=== PATIENT | female | born 1960 | race Caucasian/White ===

== ENCOUNTER → 2017-07-12 08:37 | Outpatient (CLI) | payer BC, SELFPAY ==
--- NOTE | 2017-07-12 08:40 | HPBI_ITS ---
MAMMOGRAPHY - BILATERAL SCREENING REASON FOR EXAM: Female, 57 years old. Routine annual screening examination. PERTINENT HISTORY: Aunt with breast cancer. TECHNIQUE: Digital bilateral breast lluvia (3D mammographic acquisition) in the CC and MLO projections. 2-D mediolateral oblique (MLO) and craniocaudad (CC) views of both breasts were obtained. CAD: Full Field Digital Mammography with Computer Added Detection was performed. COMPARISON: Comparison is made with prior examination dated July 11, 2016 and June 20, 2014. FINDINGS: Breast Composition: There are scattered areas of fibroglandular density. There are no dominant masses or suspicious calcifications. Stable asymmetry of breast tissue were more breast tissue is seen in the upper outer quadrant of the left breast as compared to the right side. This is unchanged. No other significant abnormalities are identified. There has been no significant change since the prior study. HPBI/SCREENING MAMM (CAD), BILAT IMPRESSION: Stable bilateral screening mammogram. Yearly follow-up mammogram recommended. (A) ASSESSMENT CATEGORY: BIRADS Category 2: Benign. A letter regarding these results will be sent to the patient by the facility within 30 days. Approximately 10% of breast cancers are not detected by mammography. A normal mammogram should not delay biopsy of a clinically suspicious abnormality. [id number] Electronically Signed: Rene Shah MD at 8:48 EST Tel [phone], Service support ,
== END ==
PROVIDERS: Family Provider Family Medicine; PCP Family Medicine; Visit Provider Obstetrics & Gynecology Gynecology
DX: Z12.31 Encounter for screening mammogram for malignant neoplasm of breast (principal)
CPT/HCPCS: 77063; 77067

== ENCOUNTER → 2017-09-22 08:12 | Outpatient (CLI) | payer BC, SELFPAY ==
[2017-09-22 09:21] LABS: Glucose GTT- Fasting 93 mg/dL (74-106)
[2017-09-22 10:52] LABS: Glucose GTT-30 minutes 175 mg/dL (110-170)
[2017-09-22 11:49] LABS: Glucose GTT- 1 Hour 205 mg/dL (120-170)
[2017-09-22 13:16] LABS: Glucose GTT- 2 Hour 138 mg/dL (70-120)
== END ==
PROVIDERS: Family Provider Family Medicine; PCP Family Medicine; Visit Provider Family Medicine
DX: R63.1 Polydipsia (principal)
CPT/HCPCS: 36415; 82951; 82952

== ENCOUNTER 2017-10-05 16:26 | Outpatient (RCR) | payer BC, SELFPAY | END 2017-11-02 23:59 | LOC: DC 16:26 | PROVIDERS: Family Provider Family Medicine; PCP Family Medicine; Visit Provider Family Medicine | DX: E11.9 Type 2 diabetes mellitus without complications (principal); Z71.3 Dietary counseling and surveillance | CPT/HCPCS: G0108 ==

== ENCOUNTER 2017-11-27 13:00 | Outpatient (RCR) | payer BC, SELFPAY | END 2017-12-02 23:59 | LOC: DC 13:00 | PROVIDERS: Family Provider Family Medicine; PCP Family Medicine; Visit Provider Family Medicine | DX: E11.9 Type 2 diabetes mellitus without complications (principal); Z71.3 Dietary counseling and surveillance | CPT/HCPCS: 97802 ==

== ENCOUNTER → 2018-01-05 10:34 | Outpatient (CLI) | payer BC, SELFPAY ==
[2018-01-05 11:34] LABS: Ferritin 79 ng/mL (8-252); Iron 125 ug/dL (50-170)
[2018-01-06 13:48] LABS: Transferrin 235 mg/dL (200-370)
== END ==
PROVIDERS: Family Provider Family Medicine; PCP Family Medicine; Visit Provider Family Medicine
DX: D64.9 Anemia, unspecified (principal); R53.83 Other fatigue
CPT/HCPCS: 36415; 82728; 83540; 84466

== ENCOUNTER 2018-02-23 09:29 | Outpatient (RCR) | payer BC, SELFPAY | END 2018-03-04 23:59 | LOC: DC 09:29 | PROVIDERS: Family Provider Family Medicine; PCP Family Medicine; Visit Provider Family Medicine | DX: E11.9 Type 2 diabetes mellitus without complications (principal); Z71.3 Dietary counseling and surveillance ==

== ENCOUNTER → 2018-03-05 07:46 | Outpatient (CLI) | payer BC, SELFPAY ==
--- NOTE | 2018-03-05 08:02 | US_ITS ---
STUDY: ABDOMINAL ULTRASOUND - RIGHT UPPER QUADRANT REASON FOR VISIT: Female, 58 years old. Elevated enzymes. TECHNIQUE: Ultrasound evaluation of the right upper quadrant was performed with real-time and static henry-scale imaging. TECHNICAL QUALITY: Adequate. COMPARISON: None. FINDINGS: Liver: The liver measures 14.1 cm. There is normal echogenicity of the liver. The bile ducts are within normal limits. There is hepatic color flow. The direction of portal flow is hepatopetal. There is no demonstrated mass lesion. Gallbladder: The patient is status post cholecystectomy. Common Bile Duct (C.B.D.): The common bile duct measures 6.8 mm. Pancreas: Normal size of the head, body and tail of the pancreas. There is normal echogenicity of the pancreas. There is no demonstrated pancreatic mass or cyst. Right Kidney: Normal size of the right kidney. The right kidney measures 9.0 cm in length. Normal renal cortex.There is no demonstrated renal mass or cyst. There is no right hydronephrosis. US/Liver IMPRESSION: Within normal limits right upper quadrant ultrasound examination. Electronically Signed: Carol Ann Mercado MD at 20:52 EDT Tel , Service support ,
[2018-03-05 08:30] LABS: Erythrocyte Sedimentation Rate 24 mm/hr (0-30)
[2018-03-05 08:49] LABS: AST(SGOT) 47 U/L (15-37); Alanine Aminotransfer ALT/SGPT 74 U/L (13-56); Albumin, Serum 3.5 g/dL (3.2-5.0); Alkaline Phosphatase 119 U/L (45-117); Bilirubin, Direct 0.13 mg/dL (0.00-0.30); GGTP 140 U/L (5-55); Globulin 3.7 g/dL (2.2-4.2); Iron 82 ug/dL (50-170); Iron Binding Capacity,Total 300 ug/dL (250-450); PERCENT IRON SATURATION 27.3 % (15.0-55.0); Protein, Total 7.2 g/dL (6.4-8.2)
== END ==
PROVIDERS: Family Provider Family Medicine; PCP Family Medicine; Referring Provider Internal Medicine Gastroenterology; Visit Provider Internal Medicine Gastroenterology
DX: K75.9 Inflammatory liver disease, unspecified (principal); R94.5 Abnormal results of liver function studies
CPT/HCPCS: 36415; 76705; 80076; 82977; 83540; 83550; 85652

== ENCOUNTER 2018-03-06 09:03 | Outpatient (RCR) | payer BC, SELFPAY | END 2018-04-04 23:59 | LOC: DC 09:03 | PROVIDERS: Family Provider Family Medicine; PCP Family Medicine; Referring Provider Family Medicine; Visit Provider Family Medicine | DX: E11.9 Type 2 diabetes mellitus without complications (principal); Z71.3 Dietary counseling and surveillance ==

== ENCOUNTER → 2018-03-20 13:27 | Outpatient (CLI) | payer BC, SELFPAY ==
[2018-03-22 10:32] LABS: ANTINUCLEAR ANTIBODIES DIRECT Negative (Negative); Anti-Mitochondrial AB <20.0 Units (0.0-20.0)
[2018-03-23 16:21] LABS: Anti-Smooth Muscle ABS 5 Units (0-19)
== END ==
PROVIDERS: Family Provider Family Medicine; PCP Family Medicine; Referring Provider Internal Medicine Gastroenterology; Visit Provider Internal Medicine Gastroenterology
DX: K75.9 Inflammatory liver disease, unspecified (principal); K76.0 Fatty (change of) liver, not elsewhere classified
CPT/HCPCS: 36415; 83516; 86038

== ENCOUNTER → 2018-07-07 08:06 | Outpatient (CLI) | payer BC, SELFPAY ==
[2018-07-07 09:28] LABS: Microalbumin,Random Urine < 5.0 mg/L (NO RANGE EST.)
[2018-07-07 09:44] LABS: Hemoglobin A1c 5.5 % (4.2-6.3)
[2018-07-07 09:46] LABS: ALB/GLOB Ratio 0.9 RATIO (0.9-2.4); AST(SGOT) 18 U/L (15-37); Alanine Aminotransfer ALT/SGPT 38 U/L (13-56); Albumin, Serum 3.5 g/dL (3.2-5.0); Alkaline Phosphatase 113 U/L (45-117); Anion Gap 10 (5-15); BUN 16 mg/dL (7-18); BUN/Creat Ratio 17.8 RATIO (10-20); Chloride 105 mmol/L (98-107); Cholesterol 204 mg/dL (200); EST Glomerular Filtration Rate 68 mL/min (>60); Est Glom Filt Rate - Afr Amer 83 mL/min (>60); Globulin 3.8 g/dL (2.2-4.2); Glucose 87 mg/dL (74-106); High Density Lipoprotein 75 mg/dL; Potassium 4.2 mmol/L (3.5-5.1); Protein, Total 7.3 g/dL (6.4-8.2); Sodium Level 141 mmol/L (136-145); Triglycerides 81 mg/dL; Very Low Density Lipoprotein 16 mg/dL (5-40)
== END ==
PROVIDERS: Family Provider Family Medicine; PCP Family Medicine; Referring Provider Family Medicine; Visit Provider Family Medicine
DX: E11.9 Type 2 diabetes mellitus without complications (principal)
CPT/HCPCS: 36415; 80053; 80061; 82043; 82570; 83036

== ENCOUNTER → 2018-07-13 10:25 | Outpatient (CLI) | payer BC, SELFPAY ==
--- NOTE | 2018-07-13 10:29 | BI_ITS ---
MAMMOGRAPHY - BILATERAL SCREENING REASON FOR EXAM: Female, 58 years old. Routine annual screening examination. PERTINENT HISTORY: Non-contributory. TECHNIQUE: Digital bilateral breast lluvia (3D mammographic acquisition) in the CC and MLO projections. 2-D mediolateral oblique (MLO) and craniocaudad (CC) views of both breasts were obtained. CAD: Full Field Digital Mammography with Computer Added Detection was performed. COMPARISON: Comparison is made with prior examination dated July 12, 2017 and July 11, 2016. FINDINGS: Breast Composition: There are scattered areas of fibroglandular density. There are no dominant masses or suspicious calcifications. Stable asymmetry of breast tissue with more breast tissue is seen in the upper outer quadrant of the left breast as compared to the right side. This is unchanged. No other significant abnormalities are identified. There has been no significant change since the prior study. BI/SCREENING MAMM (CAD), BILAT IMPRESSION: Stable bilateral screening mammogram. Yearly follow-up mammogram recommended. (A) ASSESSMENT CATEGORY: BIRADS Category 2: Benign. A letter regarding these results will be sent to the patient by the facility within 30 days. Approximately 10% of breast cancers are not detected by mammography. A normal mammogram should not delay biopsy of a clinically suspicious abnormality. [id number] Electronically Signed: Rene Shah MD at 12:41 EST , Service support ,
== END ==
PROVIDERS: Family Provider Family Medicine; PCP Family Medicine; Referring Provider Obstetrics & Gynecology Gynecology; Visit Provider Obstetrics & Gynecology Gynecology
DX: Z12.31 Encounter for screening mammogram for malignant neoplasm of breast (principal)
CPT/HCPCS: 77063; 77067

== ENCOUNTER → 2018-09-26 09:38 | Outpatient (CLI) | payer BC, SELFPAY ==
--- NOTE | 2018-09-26 13:15 | NEURO_ITS ---
NCS and/or EMG Patient Report Ordering Doctor: Shanna Perez DATE OF SERVICE: 09/26/18 Belkys Galloway presents for elective diagnostic testing of the upper limbs. She has numbness and tingling in both hands. Electrodiagnostic findings: Median motor nerve demonstrates prolonged distal latency bilaterally with normal amplitude and conduction velocity. Normal right ulnar motor response bilaterally. Normal median and ulnar F waves. Prolonged median sensory latency at the wrist is noted bilaterally, with decreased cond uction velocities. Needle EMG testing demonstrated 1+ fibrillations and left first dorsal interosseous. All other muscles tested showed no evidence of denervation. Electrodiagnostic impression: This is an abnormal study in the upper limbs. 1. Electrodiagnostic findings demonstrate bilateral median mononeuropathy. This is consistent with a moderate bilateral carpal tunnel syndrome. If there are any further questions, please do not hesitate to contact me.
== END ==
PROVIDERS: Family Provider Family Medicine; PCP Family Medicine; Referring Provider Family Medicine; Visit Provider Family Medicine
DX: G56.00 Carpal tunnel syndrome, unspecified upper limb (principal)
CPT/HCPCS: 95886; 95913

== ENCOUNTER → 2018-11-20 | Outpatient (CLI) | payer BC, SELFPAY ==
--- NOTE | 2018-11-20 09:34 | RAD_ITS ---
STUDY: X-RAY - RIGHT HAND REASON FOR EXAM: Pain. TECHNIQUE: 3 view(s) of the hand. COMPARISON: None. FINDINGS: There is osteopenia. Normal radiocarpal articulation. Normal distal radioulnar joint. Normal visualized carpal bones. Normal carpal articulations Normal carpometacarpal articulation of the thumb. Normal second through fifth carpometacarpal joints. Normal metacarpi. Normal metacarpophalangeal joint of the thumb. Normal interphalangeal joint of the thumb. Normal proximal and distal phalanges of the thumb. Normal metacarpophalangeal joints of the second through fifth fingers. Normal proximal and distal interphalangeal joints of the second through fifth fingers. Normal phalanges of the second through fifth fingers. The soft tissue structures are unremarkable. RAD/Hand Min 3 Views IMPRESSION: Osteopenia. Otherwise, unremarkable x-ray examination of the right hand. Electronically Signed: Jamel Martin MD at 14:34 EDT Tel , Service support ,
--- NOTE | 2018-11-20 09:34 | RAD_ITS ---
STUDY: X-RAY - LEFT HAND REASON FOR EXAM: Pain. TECHNIQUE: 3 view(s) of the hand. COMPARISON: None. FINDINGS: There is osteopenia. Normal radiocarpal articulation. Normal distal radioulnar joint. Normal visualized carpal bones. Normal carpal articulations Normal carpometacarpal articulation of the thumb. Normal second through fifth carpometacarpal joints. Normal metacarpi. Normal metacarpophalangeal joint of the thumb. Normal interphalangeal joint of the thumb. Normal proximal and distal phalanges of the thumb. Normal metacarpophalangeal joints of the second through fifth fingers. Normal proximal and distal interphalangeal joints of the second through fifth fingers. Normal phalanges of the second through fifth fingers. The soft tissue structures are unremarkable. RAD/Hand Min 3 Views IMPRESSION: Osteopenia. Otherwise, unremarkable x-ray examination of the left hand. Electronically Signed: Jamel Martin MD at 14:35 EDT Tel , Service support ,
== END | disposition home or self-care (01) ==
LOC: HPRAD 09:34
PROVIDERS: Family Provider Family Medicine; PCP Family Medicine; Referring Provider Orthopaedic Surgery; Visit Provider Orthopaedic Surgery
DX: G56.03 Carpal tunnel syndrome, bilateral upper limbs (principal)
CPT/HCPCS: 73130

== ENCOUNTER 2018-11-28 13:46 | Emergency (ER) | payer BC, SELFPAY ==
[2018-11-28 13:47] VITALS: BP 104/69; PULSE 84; RESP 16; TEMP 36.6; O2SAT 100; BMI 30.4
--- NOTE | 2018-11-28 14:07 | EKG12_ITS ---
Test Reason : PALPS Blood Pressure : / mmHG Vent. Rate : 080 BPM Atrial Rate : 080 BPM P-R Int : 130 ms QRS Dur : 078 ms QT Int : 370 ms P-R-T Axes : 047 034 045 degrees QTc Int : 426 ms Normal sinus rhythm Normal ECG Confirmed by JUAN LUIS MOISE, SHU ([id number]), editorial clerk MERY BLACKWELL ([id number]) on 11/30/2018 10:53:12 AM Referred By: Confirmed By:MAXI MCKNIGHT MD
--- NOTE | 2018-11-28 14:10 | RAD_ITS ---
STUDY: X-RAY CHEST REASON FOR EXAM: Female, 58 years old. TECHNIQUE: 1 view COMPARISON: None. FINDINGS: The lungs are clear and expanded. There is no demonstrated pleural abnormality. Normal size heart. Normal mediastinum and ebony. Normal visualized pulmonary arteries. Normal visualized aortic arch and descending thoracic aorta. Normal visualized thoracic spine. Normal visualized ribs, clavicles, and shoulders. There is no demonstrated abnormality of the visualized soft tissue structures of the upper abdomen. RAD/Chest 1 View (Portable) IMPRESSION: Normal x-ray examination of the chest. Electronically Signed: Jasson Mcfarland, at 14:24 EDT Tel , Service support ,
[2018-11-28 14:19] VITALS: PULSE 78; RESP 14; O2SAT 100
[2018-11-28] MEDS: Aspirin 81 MG TAB.CHEW 324 MG PO (14:21)
--- NOTE | 2018-11-28 14:36 | ED.VISSUMM ---
- ER Visit Summary Date of Service: 11/28/18 Chief Complaint: Palpitation History of Present Illness: The patient is a 58 F who presents with palpitations. He has had palpitations intermittently for the past week. She describes them as a fluttering in her chest. Is worse when she ambulates and moves. She has felt diaphoretic at times as well. No shortness breath, nausea or vomiting. She denies any chest pain but she told the triage nurse that she was having a burning sensation in her chest. At times she does feel dizzy. She has no history of this in the past. She is never had a stress test. She does have a history of anxiety. Physical Examination: Vital signs reviewed. HEENT exam unremarkable. Heart is regular rate and rhythm without murmurs. Lungs are clear to auscultation. Abdomen is soft and nontender. Extremities reveal no edema. Peripheral pulses are equal. Skin exam normal. Neurologic exam normal. Test Results: EKG is normal sinus rhythm with a rate of 80. No ST changes. Labs are unremarkable. Emergency Department Course and Treatment: The patient's rhythm was sinus throughout her stay in the emergency department. There is no ectopy on her heart monitor. I am unclear the etiology of her palpitations. Patient will be discharged to follow-up with her PCP. She may benefit from a Holter monitor if her symptoms persist. Treatment Plan: [] Disposition: Discharge Impression: Palpitations This note was generated with [employer] dictation software. It may contain incorrect words, spelling, and punctuation that were not noted in review of the chart prior to signing ED Disposition - Plan for ED Patient: Referrals: Shanna Perez DO [Primary Care Provider] -
[2018-11-28 15:58] LABS: Absolute Lymphocyte Count 1.92 X10^3/ul (0.83-4.51); Absolute Neutrophil Count 5.2 X10^3/uL (2.0-7.7); Basophil# 0.03 X10^3/uL; Basophil% 0.4 % (0-1); Eosinophil# 0.13 X10^3/uL; Eosinophils% 1.6 % (0-5); Hematocrit 44.4 % (37-47); Hemoglobin 15.3 g/dl (12.0-15.0); Lymphocyte # 1.92 X10^3/ul (4.0); Lymphocyte % 24.4 % (19-41); Mean Corp Hgb Conc 34.5 g/gl (32-36); Mean Corpuscular Hgb 31.7 pg (27.0-32.0); Mean Corpuscular Volume 91.9 fL (81-99); Mean Platelet Vol. 10.2 fl (6.2-12.0); Monocyte# 0.59 X10^3/uL; Monocyte% 7.5 % (0-10); Neutrophil # 5.18 X10^3/uL (2.7-7.7); Neutrophil % 65.7 % (47-70); Platelet Count 270 K/mm3 (150-450); RBC Distribution Width CV 12.6 % (11.6-14.6); RBC Distribution Width SD 41.7 fl (35.1-43.9); Red Blood Count 4.83 M/mm3 (4.2-5.4); White Blood Count 7.9 K/mm3 (4.4-11.0)
[2018-11-28 15:59] VITALS: BP 124/78; PULSE 81; RESP 17
[2018-11-28 15:59] LABS: POSITIVE COUNT NO; POSITIVE DIFFERENTIAL NO; POSITIVE MORPHOLOGY NO
[2018-11-28 16:16] LABS: Anion Gap 6 (5-15); BUN 20 mg/dL (7-18); BUN/Creat Ratio 20.8 RATIO (10-20); Calcium,Total 9.6 mg/dL (8.5-10.1); Chloride 109 mmol/L (98-107); Creatinine, Serum 0.96 mg/dL (0.55-1.02); EST Glomerular Filtration Rate 63 mL/min (>60); Est Glom Filt Rate - Afr Amer 76 mL/min (>60); Glucose 82 mg/dL (74-106); Sodium Level 138 mmol/L (136-145)
--- NOTE | 2018-11-28 16:29 | ED.DEP ---
ED Disposition - Plan for ED Patient: Disposition: Home or Assisted Living Instructions: Palpitations Referrals: Shanna Perez DO [Primary Care Provider] -
[2018-11-28 16:43] VITALS: PULSE 77; PULSE 78; RESP 18; O2SAT 98
== END 2018-11-28 16:52 | disposition home or self-care (01) ==
PROVIDERS: Emergency Provider Emergency Medicine; Family Provider Family Medicine; PCP Family Medicine
DX: R00.2 Palpitations (principal)
CPT/HCPCS: 36415; 71045; 80048; 84484; 85025; 93005; 99284; A4216

== ENCOUNTER 2018-11-30 12:04 | Day surgery (SDC) | payer BC, SELFPAY ==
[2018-11-30] VITALS (10 sets, daily range): BP systolic 105–118; BP diastolic 61–80; PULSE 67–86; RESP 14–16; TEMP 35.9–36; O2SAT 98–100; BMI 30.9
--- NOTE | 2018-11-30 14:06 | HP.PCM_ITS ---
History and Physical Date of Admission: 11/30/18 I have re-examined the patient. There are no clinical changes since date of exam. ntake Intake Visit Reasons: Bilat Wrist Allergies No Known Allergies Allergy (Verified 11/20/18 10:17) Medications dextroamphetamine-amphetamine ER 20 mg 24hr capsule,extend release PO #30 cap 11/20/18 [History Confirmed 11/20/18] escitalopram 20 mg tablet PO #90 tab 11/20/18 [History Confirmed 11/20/18] PFSH Social History (Updated 11/20/18 @ 11:53 by Cindy Mandujano DO) Smoking Status: Never smoker HPI Bilat Wrist: Details: Parts of this documentation were recorded by a scribe, this documentation accurately reflects the service provided and the decisions made by me, Cindy Mandujano DO 11/20/18 0917. ADY CRYSTAL is a 58 year old F new patient referred here today for BL carpal tunnel syndrome by Dr Perez. Patient denies any injections. Patient is here today to disscuss her options. Patient states her right is the worst. Patient has numbness/tingling of her BL hands along with stiffness. This pain does wake her up at night. Has tried night bracing which has not been effective. ROS Const Reports system reviewed and no additional complaints, except as docu Eyes Reports system reviewed and no additional complaints, except as docu ENT Reports system reviewed and no additional complaints, except as docu Card Reports system reviewed and no additional complaints, except as docu Resp Reports system reviewed and no additional complaints, except as docu GI Reports system reviewed and no additional complaints, except as docu Musc Reports as per HPI Skin/Breast Reports system reviewed and no additional complaints, except as docu Neuro Yes system reviewed and no additional complaints, except as docu Psych Reports system reviewed and no additional complaints, except as docu Endo Reports system reviewed and no additional complaints, except as docu Navi/Lymph Reports system reviewed and no additional complaints, except as docu Aller/Immun Reports system reviewed and no additional complaints, except as docu Ortho Exam Right Wrist/Hand Right Wrist: Yes ROM-Extension 0-60, ROM-Flexion 0-80, ROM-Pronation 0-80, ROM- Supination 0-90 and Durken's Test Motor: EPL: 5, FDP-2: 4, 1st Dorsal Interosseous: 5, APB: 4 Sensation: Radial: I, Ulnar: I, Median: D WRIST: thenar atrophy Left Wrist/Hand Left Wrist: Yes ROM-Extension 0-60, Yes ROM-Flexion 0-80, Yes ROM-Pronation 0- 80, Yes ROM-Supination 0-90 and Yes Durken's Test Motor: EPL: 5, FDP-2: 4, 1st Dorsal Interosseous: 5, APB: 4 Sensation: Radial: I, Ulnar: I, Median: D Assessment & Plan Problems 1. Bilateral carpal tunnel syndrome G56.03 Plan Personally reviewed the patient's medical history, medications, surgeries and recent exams if available. X-rays were reviewed. There is no obvious fracture, dislocation, or lucency noted. Educated on the anatomy of the hand and wrist and explained that she has bilateral moderate carpal tunnel. Her treatment options are do nothing, injection or release, the goal of the release is to stop the progression. Reviewed the post op restrictions of keeping it clean and dry for two weeks. Reviewed the risks and benefits of steroid injections and patient elects to proceed with surgery. Her right has more atrophy of the thenar than the left so will release that one first and inject the left at the time of surgical release of right. Follow up or sooner if pain, swelling, numbness or associated symptoms, or concerns develop. All questions answered. Patient in agreement of plan. Consultation code 98120 Orders Orders: Hand Min 3 Views Today G56.03 Hand Min 3 Views Today G56.03 Hand Min 3 Views Today G56.03 Coding Level of Care Code Attention Cecil Diagnoses Bilateral carpal tunnel syndrome G56.03
--- NOTE | 2018-11-30 14:08 | PCM.DC.ORTHO ---
Discharge Diet: No Restrictions - leave dressing clean, dry, and intact, follow up in 2 weeks or sooner if issues arise, call with concerns Discharge Activity: May Not Drive May shower in (days): 1 Ice area for (Minutes): 20 - Every hour while awake. Weight Bearing Status: Weight bearing as tolerated Keep extremity elevated above heart level: Operative Extremity Call your doctor if your incision/area has: Continuous Slow Oozing, Sudden Increased Bleeding, Increased Pain/ Swelling, Increased Redness, Foul Smelling Discharge Call your doctor if you observe: Fever of 101 or Higher, Coldness, Increased Pain, Numbness or Tingling, Change in Color, Calf discomfort Allergies/Adverse Reactions: Allergies No Known Allergies Allergy (Verified 11/28/18 13:49) Medications to take at Discharge dextroamphetamine-amphetamine ER 20 mg 24hr capsule,extend release 20 mg PO DAILY #30 cap 11/20/18 Ascorbic Acid [Vitamin C] 1,000 mg PO DAILY 11/27/18 Cholecalciferol (Vitamin D3) [Vitamin D3] 1,000 unit PO DAILY 11/27/18 Loratadine [Claritin] 10 mg PO DAILY 11/27/18 Polyethylene Glycol 3350 [Miralax] 17 gm PO DAILY 11/27/18 Acetaminophen/Codeine #3 [Tylenol #3 Tablet] 1 - 2 tablet PO Q6H PRN PRN #30 tablet 11/30/18 The following prescriptions were given: Acetaminophen/Codeine #3 [Tylenol #3 Tablet] 1 - 2 tablet PO Q6H PRN PRN #30 tablet PRN Reason: Pain Transmission Status: Sent to [facility] Primary Care Physician: Shanna Perez DO [Primary Care Provider] - Test Results: Test results from this visit will be discussed in further detail at your follow-up appointment, if applicable. Please Follow Up With: Cindy Mandujano DO - [phone]
--- NOTE | 2018-11-30 14:09 | PCM.OPRPT ---
Report of Operation Date of Procedure: 11/30/18 Pre-Operative Diagnosis: bilateral carpal tunnel syndrome Post-Operative Diagnosis: same Surgery/Procedure Performed:: right carpal tunnel release, left carpal tunnel injection Type of Anesthesia:: Jean Paul Garrison Anesthesiologist: Hong Ramirez Estimated Blood Loss (mL): none Fluids Replaced: 400cc lr Description of Procedure: Preoperative note Patient is a 58 year old patient with nerve conduction study confirming carpal tunnel syndrome. Patient failed conservative treatment for her carpal tunnel elected proceed with right carpal tunnel release. Risks benefits and alternatives surgery discussed with patient. Risks including but not limited to blood loss, blood clot, infection, neurovascular injury, failure procedure, loss of life and loss of limb. Patient is aware like proceed with right carpal tunnel release. Operative note Patient seen and examined preoperative holding area. right hand was marked. History and physical and consent reviewed. Patient was brought to the operating room placed supine on the operating table. Sign in, anesthesia, antibiotics were administered. right upper extremity was prepped and draped after [place] block was initiated. All bony prominences well-padded SCDs placed on bilateral lower extremities. We marked out our incisions for our carpal tunnel release at the intersection of Becki's line in the fourth ray flexed. We extended about a centimeter and a half. Timeout was performed. We then checked ensure that the Jean Paul block was working with pickups which it was not so we performed a local block of 10cc 1% lidocaine. We then used a 15 blade to make a skin incision. We then dissected down tenotomy syllable of the transverse carpal ligament. We then used a new 15 blade cut through the transverse carpal ligament down to the level of the median nerve. We then further released the median nerve the combination of the 15 blade and tenotomies. The nerve was grayish in color and adherent to the transverse carpal ligament volarly. We released the transverse carpal ligament distally to the fat pad and then proximally under standard technique. We then palpated to ensure that we released all of the transverse carpal ligament which we did. We irrigated the incision with copious amounts of sterile saline. All bleeders were coagulated. The incision was closed with interrupted 4-0 nylon stitches. Tourniquet was deflated for total working time of 11 minutes. We then injected the left carpal tunnel under standard technique under sterile conditions. Patient tired procedure well patient tolerated procedure well there were no complications. Patient transferred to recovery room in stable condition. Postoperative note pharmacy has prescription Leave dressing clean dry and intact Follow-up in 2 weeks Call with concerns This note was generated with [employer] dictation software. It may contain incorrect words, spelling, and punctuation that were not noted in checking the note before signing
[2018-11-30] MEDS: Cefazolin 2 GM in 0.9% Normal Saline 100 ML IV (14:12)
[2018-11-30] MEDS: Ropivacaine 0.5% 30 ML Vial (14:40)
[2018-11-30] MEDS: Triamcinolone Acetonide 40 MG/ML Vial (14:40)
[2018-11-30] MEDS: Mupirocin Ointment 22gm Tube 1 APPLIC (14:46)
[2018-11-30] MEDS: HYDROcodone Bitartrate/Apap 5/325 Tablet PO (16:00)
== END 2018-11-30 16:13 | disposition home or self-care (01) ==
LOC: SDC 12:04 → AC 12:06
PROVIDERS: Family Provider Family Medicine; PCP Family Medicine; Referring Provider Orthopaedic Surgery; Visit Provider Orthopaedic Surgery
PROC: (CPT 64721; principal; 2018-11-30 13:25)
DX: G56.03 Carpal tunnel syndrome, bilateral upper limbs (principal)
CPT/HCPCS: 01810; 64721; J7120

== ENCOUNTER → 2019-04-10 11:27 | Outpatient (CLI) | payer BC, SELFPAY ==
[2018-12-13 09:26] VITALS: BMI 30.9
[2019-04-10 12:49] LABS: Hematocrit 41.3 % (37-47); Hemoglobin 14.1 g/dL (12.0-15.0); Mean Corp Hgb Conc 34.1 g/dL (32-36); Mean Corpuscular Hgb 32.4 pg (27.0-32.0); Mean Corpuscular Volume 94.9 fL (81-99); Mean Platelet Vol. 10.4 fl (6.2-12.0); Platelet Count 267 K/mm3 (150-450); RBC Distribution Width SD 42.4 fl (35.1-43.9); Red Blood Count 4.35 M/mm3 (4.2-5.4); White Blood Count 8.4 K/mm3 (4.4-11.0)
[2019-04-10 13:14] LABS: Vitamin B12 542 pg/mL (211-911)
[2019-04-10 13:20] LABS: AST(SGOT) 21 U/L (15-37); Alanine Aminotransfer ALT/SGPT 41 U/L (13-56); Albumin, Serum 3.8 g/dL (3.2-5.0); Alkaline Phosphatase 128 U/L (45-117); Anion Gap 9 (5-15); BUN 18 mg/dL (7-18); BUN/Creat Ratio 20.9 RATIO (10-20); Calcium,Total 8.9 mg/dL (8.5-10.1); Chloride 105 mmol/L (98-107); Creatinine, Serum 0.86 mg/dL (0.55-1.02); EST Glomerular Filtration Rate 72 mL/min (>60); Est Glom Filt Rate - Afr Amer 87 mL/min (>60); Globulin 3.9 g/dL (2.2-4.2); Glucose 92 mg/dL (74-106); Potassium 3.9 mmol/L (3.5-5.1); Protein, Total 7.7 g/dL (6.4-8.2); Sodium Level 138 mmol/L (136-145); Thyroid Stim Hormone (TSH) 2.09 uIU/mL (0.358-3.74)
[2019-04-12 20:51] LABS: Vitamin D 1,25-Dihydroxy 65.9 pg/mL (19.9-79.3)
== END ==
PROVIDERS: Family Provider Family Medicine; PCP Family Medicine
DX: F33.2 Major depressive disorder, recurrent severe without psychotic features (principal)
CPT/HCPCS: 36415; 80053; 82607; 82652; 84443; 85027

== ENCOUNTER → 2019-07-15 10:51 | Outpatient (CLI) | payer BC, SELFPAY ==
[2018-12-13 09:26] VITALS: BMI 30.9
[2019-06-11 13:27] VITALS: BMI 30.9
--- NOTE | 2019-07-15 10:53 | BI_ITS ---
MAMMOGRAPHY - BILATERAL SCREENING REASON FOR EXAM: Female, 59 years old. Routine annual screening examination. PERTINENT HISTORY: Aunt with breast cancer. TECHNIQUE: Digital bilateral breast sandee (3D mammographic acquisition) in the CC and MLO projections. 2-D mediolateral oblique (MLO) and craniocaudad (CC) views of both breasts were obtained. CAD: Full Field Digital Mammography with Computer Added Detection was performed. COMPARISON: Comparison is made with prior study dated July 13, 2018 and July 12, 2017. FINDINGS: Breast Composition: There are scattered areas of fibroglandular density. There are no dominant masses or suspicious calcifications. Stable asymmetry of breast tissue were more breast tissue is seen in the upper outer aspect of the left breast as compared to the right side. No other significant abnormalities are identified. There has been no significant change since the prior study. BI/SCREEN MAMM (CAD) W/SANDEE BILAT IMPRESSION: Stable bilateral screening mammogram. Yearly follow-up mammogram recommended. (A) ASSESSMENT CATEGORY: BIRADS Category 2: Benign. A letter regarding these results will be sent to the patient by the facility within 30 days. Approximately 10% of breast cancers are not detected by mammography. A normal mammogram should not delay biopsy of a clinically suspicious abnormality. [id number] Electronically Signed: Rene Shah, at 13:38 EST , Service support ,
== END ==
PROVIDERS: Family Provider Family Medicine; PCP Family Medicine; Referring Provider Obstetrics & Gynecology Gynecology; Visit Provider Obstetrics & Gynecology Gynecology
DX: Z12.31 Encounter for screening mammogram for malignant neoplasm of breast (principal)
CPT/HCPCS: 77063; 77067

== ENCOUNTER → 2019-11-04 14:28 | Outpatient (CLI) | payer BC, SELFPAY ==
[2019-10-31 13:52] VITALS: BMI 30.9
--- NOTE | 2019-11-04 14:30 | RAD_ITS ---
STUDY: X-RAY - LEFT HAND REASON FOR EXAM: Swelling, unknown reason. TECHNIQUE: 3 view(s) of the hand. COMPARISON: Radiographs 11/20/2018. FINDINGS: There is osteopenia. Normal radiocarpal articulation. Normal distal radioulnar joint. Normal visualized carpal bones. Normal carpal articulations Normal carpometacarpal articulation of the thumb. Normal second through fifth carpometacarpal joints. Normal metacarpi. Normal metacarpophalangeal joint of the thumb. Normal interphalangeal joint of the thumb. Normal proximal and distal phalanges of the thumb. Normal metacarpophalangeal joints of the second through fifth fingers. Normal proximal and distal interphalangeal joints of the second through fifth fingers. Normal phalanges of the second through fifth fingers. The soft tissue structures are unremarkable. RAD/Hand Min 3 Views IMPRESSION: Osteopenia. Otherwise, unremarkable x-ray examination of the left hand. Electronically Signed: Jamel Martin MD at 15:15 EDT Tel , Service support ,
== END ==
PROVIDERS: PCP Family Medicine; Referring Provider Orthopaedic Surgery; Visit Provider Orthopaedic Surgery
DX: M79.89 Other specified soft tissue disorders (principal)
CPT/HCPCS: 73130

== ENCOUNTER 2019-11-27 12:28 | Day surgery (SDC) | payer BC, SELFPAY ==
[2019-08-12 11:02] VITALS: BMI 30.9
--- NOTE | 2019-11-21 01:09 | HP_ITS ---
Insert H&P no changes I have re-examined the patient. There are no clinical changes since date of exam. We discussed the current risk associated COVID-19. While it is understood that there is a community spread of COVID 19 the risk of bryan COVID-19 while at [facility] is very low, however, the risk cannot be completely mitigated because of the community spread of the disease. We discussed in detail the risk of exposure to and or potential harm posed by the COVID-19 virus with having a surgery/procedure at this time versus the risk of delaying the surgery/procedure. Is not possible to know either the risk of delaying the surgery procedure or chance of getting an infection with perfect accuracy, but a joint decision was made to proceed at this time with a schedule surgery/procedure as indicated on the consent form. Patient was notified that we will need to comply with any screening or testing [facility] wishes to perform or that surgery may be delayed for any positive results. Intake Intake Visit Reasons: Left hand Is patient in pain?: Yes Allergies No Known Allergies Allergy (Verified 10/31/19 13:29) [facility] Social History (Updated 11/21/19 @ 13:[address] Cindy Mandujano, ) Smoking Status: Never smoker HPI Left hand: Surgical H&P: Yes Details: Parts of this documentation were recorded by a scribe, this documentation accurately reflects the service provided and the decisions made by me, Dr. Cindy Mandujano DO 11/21/19 1242. ADY CRYSTAL is a 59 year old F here today for f/u on left index finger swelling and pain, she has no pain today and much improved rom. The swelling is decreased and patient believes her hand and finger swelling is due to the carpal tunnel. She has tingling and numbness in the fingers as well today. Patient is waking up at night with numbness. ROS Musc Reports as per HPI, Reports joint swelling, Reports limited joint movement, Reports numbness, Reports tingling Skin/Breast Reports as per HPI Neuro Yes as per HPI, Yes numbness, Yes tingling Ortho Exam Right Wrist/Hand Skin/Wound: Yes Swelling Left Wrist/Hand Skin/Wound: Yes Swelling Left Wrist: Yes Durken's Test Assessment & Plan Problems 1. Left carpal tunnel syndrome G56.02 Plan Reviewed the pre-operative plans with the patient. Risks and benefits of the procedure were fully explained, including but not limited to infection, neurovascular injury, continued pain, arthritis, stiffness, need for further surgery, re-injury, DVT, PE, general risks of anesthesia, and loss of limb or life. The patient understands all the risks and does wish to proceed with written consent. We discussed the current risk associated COVID-19. While it is understood that there is a community spread of COVID 19 the risk of bryan COVID-19 while at [facility] is very low, however, the risk cannot be completely mitigated because of the community spread of the disease. We discussed in detail the risk of exposure to and or potential harm posed by the COVID-19 virus with having a surgery/procedure at this time versus the risk of delaying the surgery/procedure. Is not possible to know either the risk of delaying the surgery procedure or chance of getting an infection with perfect accuracy, but a joint decision was made to proceed at this time with a schedule surgery/procedure as indicated on the consent form. Patient was notified that we will need to comply with any screening or testing [facility] wishes to perform or that surgery may be delayed for any positive results. Reviewed the post op limitations and the pre op covid testing. Follow up postop or sooner if pain, swelling, numbness or associated symptoms, or concerns develop. All questions answered. Patient in agreement of plan. Coding Level of Care Code Off vis,est,level 4 Diagnoses Left carpal tunnel syndrome G56.02 11/21/19 1309 <Electronically signed by Cindy hope DO> Date _ Cindy Mandujano DO
[2019-11-21 13:09] VITALS: BMI 30.9
[2019-11-27] VITALS (7 sets, daily range): BP systolic 111–121; BP diastolic 58–73; PULSE 60–69; RESP 16–18; TEMP 36.1–36.8; O2SAT 98–99; BMI 30.1
[2019-11-27] MEDS: Lactated Ringers 1,000 ML 100 ML IV (12:58)
[2019-11-27] MEDS: Cefazolin 2 GM in 0.9% Normal Saline 100 ML IV (15:00)
[2019-11-27] MEDS: Mupirocin Ointment 22gm Tube 1 APPLIC (15:31)
--- NOTE | 2019-11-27 15:41 | PCM.DC.ORTHO ---
Discharge Diet: No Restrictions - Leave dressing on until seen in postop clinic in 10-14 days for suture removal, keep dressing clean, dry, intact; change dressing if gets wet/dirty, call with concerns Discharge Activity: May Not Drive May shower in (days): 1 Ice area for (Minutes): 20 - Every hour while awake. Weight Bearing Status: Weight bearing as tolerated Keep extremity elevated above heart level: Operative Extremity Call your doctor if your incision/area has: Continuous Slow Oozing, Sudden Increased Bleeding, Increased Pain/ Swelling, Increased Redness, Foul Smelling Discharge Call your doctor if you observe: Fever of 101 or Higher, Coldness, Increased Pain, Numbness or Tingling, Change in Color, Calf discomfort Allergies/Adverse Reactions: Allergies No Known Allergies Allergy (Verified 11/27/19 12:50) Medications to take at Discharge dextroamphetamine-amphetamine ER 20 mg 24hr capsule,extend release 20 mg PO DAILY #30 cap 11/20/18 Ascorbic Acid [Vitamin C] 1,000 mg PO DAILY 11/27/18 Cholecalciferol (Vitamin D3) [Vitamin D3] 1,000 unit PO DAILY 11/27/18 Loratadine [Claritin] 10 mg PO DAILY 11/27/18 Polyethylene Glycol 3350 [Miralax] 17 gm PO DAILY 11/27/18 escitalopram oxalate 20 mg tablet 20 mg PO QHS 08/12/19 levothyroxine 25 mcg tablet 25 mcg PO DAILY 08/12/19 Cyanocobalamin (Vitamin B-12) [Vitamin B-12] 1,000 mcg PO DAILY 11/22/19 Magnesium 250 mg PO DAILY 11/22/19 Acetaminophen/Codeine #3 [Tylenol #3 Tablet] 1 - 2 tablet PO Q6H PRN PRN #20 tablet 11/27/19 The following prescriptions were given: Acetaminophen/Codeine #3 [Tylenol #3 Tablet] 1 - 2 tablet PO Q6H PRN PRN #20 tablet PRN Reason: Pain Transmission Status: Sent to [facility] Primary Care Physician: Shanna Perez DO [Primary Care Provider] - Test Results: Test results from this visit will be discussed in further detail at your follow-up appointment, if applicable. Please Follow Up With: Cindy Mandujano DO - [phone]
--- NOTE | 2019-11-27 15:41 | PCM.OPRPT ---
Report of Operation Date of Procedure: 11/27/19 Pre-Operative Diagnosis: left carpal tunnel syndrome Post-Operative Diagnosis: same Surgery/Procedure Performed:: left carpal tunnel release sheet metal engineer: Bill Langford Anesthesiologist: Lico Morrow Estimated Blood Loss (mL): min Fluids Replaced: 500 Description of Procedure: Preoperative note Patient is a { 59 yo} patient with nerve conduction study confirming carpal tunnel syndrome. Patient failed conservative treatment for her carpal tunnel elected proceed with left carpal tunnel release. Risks benefits and alternatives surgery discussed with patient. Risks including but not limited to blood loss, blood clot, infection, neurovascular injury, failure procedure, loss of life and loss of limb. Patient is aware like proceed with left carpal tunnel release. Operative note Patient seen and examined preoperative holding area. Left hand was marked. History and physical and consent reviewed. Patient was brought to the operating room placed supine on the operating table. Sign in, anesthesia, antibiotics were administered. Left upper extremity was prepped and draped after [place] block was initiated. All bony prominences well-padded SCDs placed on bilateral lower extremities. We marked out our incisions for our carpal tunnel release at the intersection of Becki's line in the fourth ray flexed. We extended about a centimeter and a half. Timeout was performed. We then checked ensure that the Jean Paul block was working with pickups which it was. We then used a 15 blade to make a skin incision. We then dissected down tenotomy syllable of the transverse carpal ligament. We then used a new 15 blade cut through the transverse carpal ligament down to the level of the median nerve. We then further released the median nerve the combination of the 15 blade and tenotomies. The nerve was grayish in color and adherent to the transverse carpal ligament volarly. We released the transverse carpal ligament distally to the fat pad and then proximally under standard technique. We then palpated to ensure that we released all of the transverse carpal ligament which we did. We irrigated the incision with copious amounts of sterile saline. All bleeders were coagulated. The incision was closed with interrupted 4-0 nylon stitches. Tourniquet was deflated for total working time of 14 minutes. Patient tolerated procedure well there were no complications. Patient transferred to recovery room in stable condition. Postoperative note Hospital pharmacy has prescription Leave dressing clean dry and intact Follow-up in 2 weeks Call with concerns This note was generated with [employer] software. It may contain incorrect words, spelling, and punctuation that were not noted in checking the note before signing.
[2019-11-27] MEDS: HYDROcodone Bitartrate/Apap 5/325 Tablet PO (16:35)
== END 2019-11-27 17:06 | disposition home or self-care (01) ==
LOC: SDC 12:31 → AC 12:31
PROVIDERS: Anesthesiology; PCP Family Medicine; Referring Provider Orthopaedic Surgery; Visit Provider Orthopaedic Surgery
PROC: (CPT 64721; principal; 2019-11-27 14:05)
DX: G56.02 Carpal tunnel syndrome, left upper limb (principal)
CPT/HCPCS: 01810; 64721; 87635; G2023; J7120; U0003

== ENCOUNTER 2020-03-23 05:45 | Day surgery (SDC) | payer BC, SELFPAY ==
[2019-12-09 14:34] VITALS: BMI 30.1
[2020-03-23] VITALS (8 sets, daily range): BP systolic 92–122; BP diastolic 52–76; PULSE 66–77; RESP 16–18; TEMP 35.9–36.3; O2SAT 96–100; BMI 29.1
--- NOTE | 2020-03-23 06:18 | PCM.HP.STD ---
Problem List (1) Screening for intestinal cancer Status: Acute History of Present Illness Date of Admission: 03/23/20 The patient is a 60 year old F who presents for screening colonoscopy today. She had one 10 years ago. She is not had a personal history of colon polyps or colon cancer. She denies any abdominal pain. No bright red blood per rectum or melena. No fever or cough or shortness of breath. Past Medical History Allergies No Known Allergies Allergy (Verified 03/23/20 06:08) Home Medications: Ambulatory Orders Medication Instructions Recorded dextroamphetamine-amphetamine ER 20 mg PO 1400 #30 cap 11/20/18 20 mg 24hr capsule,extend release Ascorbic Acid [Vitamin C] 1,000 mg PO DAILY 11/27/18 Cholecalciferol (Vitamin D3) 1,000 unit PO DAILY 11/27/18 [Vitamin D3] Loratadine [Claritin] 10 mg PO DAILY 11/27/18 Polyethylene Glycol 3350 [Miralax] 17 gm PO DAILY 11/27/18 escitalopram oxalate 20 mg tablet 20 mg PO QHS 08/12/19 levothyroxine 25 mcg tablet 25 mcg PO DAILY 08/12/19 Cyanocobalamin (Vitamin B-12) 1,000 mcg PO DAILY 11/22/19 [Vitamin B-12] Magnesium 250 mg PO DAILY 11/22/19 Smoking Status: Never smoker Tobacco Use: Non-smoker Review of Systems Constitutional: Denies: Fever HEENT: Denies: Dysphasia Cardiovascular: Denies: Chest Pain Respiratory: Denies: Cough, Shortness of Breath Gastrointestinal: Denies: Abdominal Pain, Hematochezia, Melena Endocrine: Reports: Change in Body Habitus - Slight weight loss felt to be secondary to diet VTE Information - Inpt Only VTE Present on Admission: No - Physical Exam Vitals/I&O's: Body Mass Index (BMI) 30.1 General: Alert, Oriented x3, Cooperative HEENT: Atraumatic Neck: Supple Lungs: Clear to auscultation, Normal air movement Cardiovascular: Regular rate, Regular Rhythm Abdomen: Bowel Sounds Present, Soft, Non Tender Extremities: No Calf Tenderness Psych/Mental Status: Normal Affect Assessment/Plan All Active Problems Screening for intestinal cancer (Acute) I recommend to the patient a screening colonoscopy with possible biopsy or polypectomy is indicated. She is aware of the technique, benefit, risk, alternatives. She has had an opportunity to ask and have questions answered. She presents via open access today. We will proceed as noted. Roberto Juan M.D., F.A.C.S. Procedure Criteria Procedure Type: Elective COVID Risk Discussion: The surgeon/proceduralist and patient have discussed in detail the risk of exposure to and/or potential harm posed by the COVID-19 virus with having a surgery/procedure at this time versus the risk of delaying the surgery/procedure. It is not possible to know either the risk of delaying the surgery or procedure or chance of getting an infection with perfect accuracy, but a joint decision was made between the patient and the surgeon/proceduralist to proceed at this time with the scheduled surgery/procedure as indicated on the consent form.
[2020-03-23] MEDS: Lactated Ringers 1,000 ML 100 ML IV (06:22)
--- NOTE | 2020-03-23 07:37 | OP.COLON_ITS ---
Patient Name: Belkys Galloway Procedure Date: 03/23/2020 7:09 AM Date of : 1960 Age: 60 Procedure: Colonoscopy Indications: Screening for colorectal malignant neoplasm Providers: Roberto Juan MD Referring MD: Roberto Juan MD Medicines: Midazolam 3.5 mg IV, Meperidine 100 mg IV Patient Profile: Last Colonoscopy: 10 years ago. Complications: No immediate complications. Procedure: Pre-Anesthesia Assessment: - Prior to the procedure, a History and Physical was performed, and patient medications and allergies were reviewed. The patient's tolerance of previous anesthesia was also reviewed. The risks and benefits of the procedure and the sedation options and risks were discussed with the patient. All questions were answered, and informed consent was obtained. Prior Anticoagulants: The patient has taken no previous anticoagulant or antiplatelet agents. ASA Grade Assessment: II - A patient with mild systemic disease. After reviewing the risks and benefits, the patient was deemed in satisfactory condition to undergo the procedure. After I obtained informed consent, the scope was passed under direct vision. Throughout the procedure, the patient's blood pressure, pulse, and oxygen saturations were monitored continuously. The colonoscope was introduced through the anus and advanced to the cecum, identified by appendiceal orifice and ileocecal valve. The colonoscopy was somewhat difficult due to a tortuous colon. Successful completion of the procedure was aided by increasing the dose of sedation medication. The patient tolerated the procedure well. The quality of the bowel preparation was good. The ileocecal valve and the appendiceal orifice were photographed. Moderate Sedation: Moderate (conscious) sedation was personally administered by the endoscopist. The following parameters were monitored: oxygen saturation, heart rate, blood pressure, and response to care. Total physician intraservice time was 15 minutes. Scope In: 7:16:18 AM Scope Withdrawal Time 0 hours 7 minutes 48 seconds Scope Out: 7:32:04 AM Total Procedure Duration Time 0 hours 15 minutes 46 seconds Findings: Hemorrhoids were found on perianal exam. Scattered diverticula were found in the entire colon. The exam was otherwise without abnormality. Impression: - Hemorrhoids found on perianal exam. - Diverticulosis in the entire examined colon. - The examination was otherwise normal. - No specimens collected. Recommendation: - Discharge patient to home. - Resume previous diet. - Continue present medications. - Repeat colonoscopy in 10 years for screening purposes. Procedure Code(s): --- Professional --- 96308, Colonoscopy, flexible; diagnostic, including collection of specimen(s) by brushing or washing, when performed (separate procedure) 56306, 59, Moderate sedation services provided by the same physician or other qualified health director of healthcare systems performing the diagnostic or therapeutic service that the sedation supports, requiring the presence of an independent trained observer to assist in the monitoring of the patient's level of consciousness and physiological status; initial 15 minutes of intraservice time, patient age 5 years or older Diagnosis Code(s): --- Professional --- Z12.11, Encounter for screening for malignant neoplasm of colon K64.9, Unspecified hemorrhoids K57.30, Diverticulosis of large intestine without perforation or abscess without bleeding CPT copyright 2017 [employer]. All rights reserved. The codes documented in this report are preliminary and upon elementary tutor review may be revised to meet current compliance requirements. Roberto Juan MD 03/23/2020 7:37:17 AM This report has been signed electronically. Number of Addenda: 0 Note Initiated On: 03/23/2020 7:09 AM
--- NOTE | 2020-03-23 07:38 | OP.CCLET_ITS ---
03/23/2020 Shanna Perez [address] [place] [address] Re : Colonoscopy procedure for Belkys Galloway Dear Dr. Perez This procedure was performed on Monday, March 23, 2020. My impressions and recommendations are as follows: Impressions : - Hemorrhoids found on perianal exam. - Diverticulosis in the entire examined colon. - The examination was otherwise normal. - No specimens collected. Recommendations : - Discharge patient to home. - Resume previous diet. - Continue present medications. - Repeat colonoscopy in 10 years for screening purposes. My findings are described in the full procedure note, which is enclosed. If I can be of further assistance, please feel free to contact me at Doctor phone number(s): Work: . Sincerely, Roberto Juan MD 03/23/2020 7:37:17 AM This report has been signed electronically.
== END 2020-03-23 08:15 | disposition home or self-care (01) ==
LOC: EN 05:45 → AC 05:45
PROVIDERS: Anesthesiology; PCP Family Medicine; Referring Provider Family Medicine; Visit Provider Surgery
PROC: 0DJD8ZZ Inspection of Lower Intestinal Tract, Via Natural or Artificial Opening Endoscopic (ICD-10-PCS; CPT 45378; principal; 2020-03-23 06:55)
DX: Z12.11 Encounter for screening for malignant neoplasm of colon (principal); K64.9 Unspecified hemorrhoids; K57.30 Diverticulosis of large intestine without perforation or abscess without bleeding; Z11.59 Encounter for screening for other viral diseases
CPT/HCPCS: 45378; 87635; 99152; 99153; C9803; J7120; U0003

== ENCOUNTER → 2020-08-03 15:53 | Outpatient (CLI) | payer OTHER, SELFPAY ==
[2020-03-23 06:10] VITALS: BMI 29.1
[2020-08-03 17:20] LABS: Absolute Lymphocyte Count 1.63 X10^3/uL (0.83-4.51); Absolute Neutrophil Count 5.3 X10^3/uL (2.0-7.7); Basophil# 0.07 X10^3/uL; Basophil% 0.9 % (0-1); Eosinophil# 0.23 X10^3/uL; Eosinophils% 2.9 % (0-5); Hematocrit 38.8 % (37-47); Hemoglobin 13.7 g/dL (12.0-15.0); Lymphocyte # 1.63 X10^3/ul (4.0); Lymphocyte % 20.7 % (19-41); Mean Corp Hgb Conc 35.3 g/dL (32-36); Mean Corpuscular Hgb 34.3 pg (27.0-32.0); Mean Platelet Vol. 10.2 fl (6.2-12.0); Monocyte# 0.63 X10^3/uL; NRBC Flagged by Analyzer 0 % (0-5); Neutrophil # 5.29 X10^3/uL (2.7-7.7); Neutrophil % 67.2 % (47-70); Platelet Count 279 K/mm3 (150-450); RBC Distribution Width CV 12.5 % (11.6-14.6); RBC Distribution Width SD 43.4 fl (35.1-43.9); White Blood Count 7.9 K/mm3 (4.4-11.0)
[2020-08-03 17:54] LABS: AST(SGOT) 20 U/L (15-37); Alanine Aminotransfer ALT/SGPT 28 U/L (13-56); Albumin, Serum 3.9 g/dL (3.2-5.0); Alkaline Phosphatase 124 U/L (45-117); Anion Gap 8 (5-15); BUN 18 mg/dL (7-18); BUN/Creat Ratio 18.9 RATIO (10-20); Calcium,Total 9.3 mg/dL (8.5-10.1); Chloride 101 mmol/L (98-107); Creatinine, Serum 0.95 mg/dL (0.55-1.02); EST Glomerular Filtration Rate 63 mL/min (>60); Est Glom Filt Rate - Afr Amer 77 mL/min (>60); Free T3 2.5 pg/mL (2.18-3.98); Globulin 3.9 g/dL (2.2-4.2); Glucose 99 mg/dL (74-106); Potassium 3.7 mmol/L (3.5-5.1); Protein, Total 7.8 g/dL (6.4-8.2); Sodium Level 137 mmol/L (136-145); T4 Free Direct 1.06 ng/dL (0.76-1.46); Thyroid Stim Hormone (TSH) 1.88 uIU/mL (0.358-3.74)
== END ==
PROVIDERS: PCP Family Medicine; Visit Provider Family Medicine
DX: E03.9 Hypothyroidism, unspecified (principal); Z51.81 Encounter for therapeutic drug level monitoring
CPT/HCPCS: 36415; 80053; 84439; 84443; 84481; 85025

== ENCOUNTER → 2020-10-20 16:01 | Outpatient (CLI) | payer OTHER, SELFPAY ==
[2020-03-23 06:10] VITALS: BMI 29.1
--- NOTE | 2020-10-20 16:03 | BI_ITS ---
MAMMOGRAPHY - BILATERAL SCREENING 3-D TOMOSYNTHESIS REASON FOR EXAM: Female, 60 years old. Routine screening PERTINENT HISTORY: Aunt with breast cancer.. TECHNIQUE: 2-D mammograms and 3-D Tomosynthesis of the breast (s) were performed. CAD was performed. COMPARISON: 07/15/2019 FINDINGS: The breast composition is composed of scattered fibroglandular density. Scattered benign calcifications are seen. No dense spiculated masses or suspicious microcalcifications are identified. No architectural distortion is identified. There is no skin thickening or retraction. There has been no significant change since the prior study. BI/SCRN MAMM (CAD)W/SANDEE BILAT IMPRESSION: No mammographic signs of malignancy. Routine yearly mammograms recommended. ASSESSMENT CATEGORY: BIRADS Category 1: Negative. A letter regarding these results will be sent to the patient by the facility within 30 days. FOLLOW UP RECOMMENDATION: Yearly follow up mammogram recommended. (A) Approximately 10% of breast cancers are not detected by mammography. A normal mammogram should not delay biopsy of a clinically suspicious abnormality. Electronically Signed: Logan Mcgregor MD at 7:50 EDT , Service support ,
== END ==
PROVIDERS: PCP Family Medicine; Referring Provider Family Medicine; Visit Provider Family Medicine
DX: Z12.31 Encounter for screening mammogram for malignant neoplasm of breast (principal); Z80.3 Family history of malignant neoplasm of breast
CPT/HCPCS: 77063; 77067

== ENCOUNTER → 2021-10-26 | Outpatient (CLI) | payer BC, SELFPAY ==
--- NOTE | 2021-10-26 08:03 | BI_ITS ---
MAMMOGRAPHY - BILATERAL SCREENING REASON FOR EXAM: Female, 61 years old. Routine annual screening examination. PERTINENT HISTORY: Aunt with breast cancer. TECHNIQUE: Digital bilateral breast sandee (3D mammographic acquisition) in the CC and MLO projections. 2-D mediolateral oblique (MLO) and craniocaudad (CC) views of both breasts were obtained. CAD: Full Field Digital Mammography with Computer Added Detection was performed. COMPARISON: Bilateral screening mammogram from 10/20/2020, 07/15/2019, 07/13/2018. FINDINGS: Breast Composition: There are scattered areas of fibroglandular density. There are no dominant masses or suspicious calcifications. No other significant abnormalities are identified. There has been no significant change since the prior study. BI/SCRN MAMM (CAD)W/SANDEE BILAT IMPRESSION: Stable bilateral screening mammogram. Yearly follow-up mammogram recommended. (A) ASSESSMENT CATEGORY: BIRADS Category 1: Negative. A letter regarding these results will be sent to the patient by the facility within 30 days. Approximately 10% of breast cancers are not detected by mammography. A normal mammogram should not delay biopsy of a clinically suspicious abnormality. [id number] Electronically Signed: Zeferino Burrell, at 18:25 EDT ,
--- NOTE | 2021-10-28 09:24 | RAD_ITS ---
STUDY: XR Hand Min 3 Views REASON FOR EXAM: Female, 61 years old. fx pain Technologist Notes 5TH FX FOLLOW UP TECHNIQUE: XR Hand Min 3 Views RIGHT COMPARISON: 5. FINDINGS: Normal radiocarpal articulation. Normal distal radioulnar joint. Normal visualized carpal bones. Normal carpal articulations Normal carpometacarpal articulation of the thumb. Normal second through fifth carpometacarpal joints. Normal metacarpi. Normal metacarpophalangeal joint of the thumb. Normal interphalangeal joint of the thumb. Normal proximal and distal phalanges of the thumb. Normal metacarpophalangeal joints of the second through fifth fingers. Normal proximal and distal interphalangeal joints of the second through fifth fingers. Mildly angulated fracture distal fifth metacarpal bone. Soft tissue swelling over the dorsum of the hand. RAD/Hand Min 3 Views IMPRESSION: Fracture of the 5th metacarpal bone. No evidence for healing. Electronically Signed: Leandro Grace MD at 15:44 EDT Reading Location ID and State: [facility] / [place] , Service support ,
== END | disposition home or self-care (01) ==
LOC: OPBI 08:01
PROVIDERS: PCP Family Medicine; Visit Provider Family Medicine
DX: Z12.31 Encounter for screening mammogram for malignant neoplasm of breast (principal); Z80.3 Family history of malignant neoplasm of breast
CPT/HCPCS: 73130; 77063; 77067

== ENCOUNTER → 2021-11-17 | Outpatient (CLI) | payer BC, SELFPAY ==
[2021-11-17 08:32] LABS: Absolute Lymphocyte Count 1.64 X10^3/uL (0.83-4.51); Basophil# 0.07 X10^3/uL; Basophil% 1.1 % (0-1); Eosinophil# 0.25 X10^3/uL; Eosinophils% 3.8 % (0-5); Hemoglobin 14.1 g/dL (12.0-15.0); Lymphocyte # 1.64 X10^3/ul (0.83-4.51); Lymphocyte % 25.2 % (19-41); Mean Corp Hgb Conc 33.6 g/dL (32-36); Mean Corpuscular Hgb 31.9 pg (27.0-32.0); Mean Platelet Vol. 9.7 fl (6.2-12.0); Monocyte# 0.57 X10^3/uL; Monocyte% 8.7 % (0-10); NRBC Flagged by Analyzer 0 % (0-5); Neutrophil # 3.96 X10^3/uL (2.7-7.7); Neutrophil % 60.7 % (47-70); Platelet Count 264 K/mm3 (150-450); RBC Distribution Width CV 12.2 % (11.6-14.6); RBC Distribution Width SD 42.6 fl (35.1-43.9); Red Blood Count 4.42 M/mm3 (4.2-5.4); White Blood Count 6.5 K/mm3 (4.4-11.0)
[2021-11-17 09:27] LABS: ALB/GLOB Ratio 0.9 RATIO (0.9-2.4); AST(SGOT) 19 U/L (15-37); Alanine Aminotransfer ALT/SGPT 31 U/L (13-56); Albumin, Serum 3.6 g/dL (3.2-5.0); Alkaline Phosphatase 134 U/L (45-117); Anion Gap 3 (5-15); BUN 19 mg/dL (7-18); BUN/Creat Ratio 20.9 RATIO (10-20); Calcium,Total 9.1 mg/dL (8.5-10.1); Chloride 106 mmol/L (98-107); Cholesterol 239 mg/dL (200); Creatinine, Serum 0.91 mg/dL (0.55-1.02); EST Glomerular Filtration Rate 67 mL/min (>60); Est Glom Filt Rate - Afr Amer 81 mL/min (>60); Free T3 2.1 pg/mL (2.18-3.98); Globulin 3.8 g/dL (2.2-4.2); Glucose 102 mg/dL (74-106); High Density Lipoprotein 88 mg/dL; Potassium 4.1 mmol/L (3.5-5.1); Protein, Total 7.4 g/dL (6.4-8.2); Sodium Level 138 mmol/L (136-145); T4 Free Direct 0.89 ng/dL (0.76-1.46); Thyroid Stim Hormone (TSH) 1.63 uIU/mL (0.358-3.74); Triglycerides 71 mg/dL; Very Low Density Lipoprotein 14 mg/dL (5-40)
== END | disposition home or self-care (01) ==
PROVIDERS: PCP Family Medicine; Referring Provider Family Medicine; Visit Provider Family Medicine
DX: Z51.81 Encounter for therapeutic drug level monitoring (principal); E11.9 Type 2 diabetes mellitus without complications; E03.9 Hypothyroidism, unspecified; I10 Essential (primary) hypertension
CPT/HCPCS: 36415; 80053; 80061; 84439; 84443; 84481; 85025

== ENCOUNTER 2021-12-02 09:00 | Outpatient (RCR) | payer BC, SELFPAY ==
--- NOTE | 2021-11-05 07:52 | HP.OTEVAL ---
Patient's Visit Information ADY CRYSTAL is a 61 year old F, referred to Occupational Therapy by JERMAINE Salguero, with a diagnosis of R boxers fracture of 5th digit. Date of Evaluation: 11/04/21 Occupational Therapist: Janessa Santana, SANDORR/L, CHT - Subjective pt. is a 61 y/o female who was referred for R boxers fracture of 5th digit. Dropped attic ladder on R hand October 08, 2021. Went to urgent care ~October 11, positioned pt. into prefab ulnar gutter splint. No surgery. Pt. wearing prefab splint with modifications for comfort and fit. Pt. currently off work secondary to injury, works at [employer]. Pt. having difficulty with daily tasks and unable to work. Pt. would like to return to [facility]. 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 2 story home, laundry in basement, lives with spouse able to assist. Dog and 2 cats. enjoys gardening. 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 radial head - Sensation Sensation Comments: some tingling at night time in R hand on ulnar side. - Quick DASH-Disab of Arm,Shoulder& Hand Quick DASH Score: 70.0000 - Goals Goal:: Pt. 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 Goal:: Pt. to improve R wrist flexion/extension by 10* (from R 15/55) for independence with IADL tasks by dc. pt will demo the ability to form composite fist to hold small objects IND. to increase pts IND with ADLs and IADLs by d/c Goal:: Pt. to verbalize understanding of wear schedule of custom orthotic and verbalize that she is consistent with wear schedule within 1 week. - Rehabilitation General Assessment: Pt. was referred by Antoine Lux for right hand boxers fracture (5th digit radial head). No surgery, just orthotic for stabilization. Fracture was ~ 4 weeks ago (October 08, 2021). Educated pt. on what to expect with healing and therapy. Because of deficits with wrist flex/ext, finger flex/ext she has decreased indep with with gardening and work. She would benefit from skilled OT services 1 x a week for 2 weeks then 2x a week for 4 weeks to adjust custom orthosis as needed, ROM, and strengthening to improve AROM and strength for IADL tasks. Pt. demo'd understanding & agreeable to POC. Therapy session was directly supervised and doc. reviewed and approved by Janessa Santana OTR/L,CHT. Rehabilitation Potential: Good - Anticipated Interventions Strengthening, Joint Protection/Energy Conservation, Fine Motor Coord/Randolph, Education re Diagnosis, Home Program Other Interventions: gentle/light AROM flex/ext. at week 6-7 start strengthening - Visit Plan Frequency: 1-2x /Week Duration: 6 Weeks General Plan: can make Ulnar gutter splint a short splint per phone call with PA at office. TEXT: Thank you for the opportunity to evaluate your patient. For Medicare and Medicare HMO plans, please review the plan of care and approve it. It will need to be FAXED BACK to us at [phone] for Medicare purposes. Please let me know if there are questions or concerns regarding this plan of care. Physician Signature: Date:
--- NOTE | 2021-12-02 09:32 | HP.OTDCSUM ---
It has been my pleasure to treat ADY CRYSTAL under orders from JERMAINE Salguero, for the diagnosis of R boxers fracture of 5th digit for a total of 5 visit(s). Please see the following information for a summary of their discharge status. % Improvement: 90 Objective/Function: right LF MCP 50* left 85*. right LF PIP 70* left 70. right LF DIP 60 left 60. right impregnator and drier helper 25# left 40#. pt demo good functional ROM to perform ADLs and IADls Patient Goals: Regain Strength, Decrease Pain, Return to Work, Decrease Swelling/Stiffness, Improve Fine Motor Skills, Use Hand/Wrist/Arm Normally Again, Decrease Tingling/Numbness, Be More Independent in ADLS, Resume Former Household Responsibilities (Cooking,Cleaning,Yard, etc.) Other: gardening (sweet). Use a knife again to chop. Goal:: Pt. to improve R hand impregnator and drier helper by 25# for independence with gardening and work by dc. Goal:: Pt. to improve R wrist flexion/extension by 10* (from R 15/55) for independence with IADL tasks by dc. pt will demo the ability to form composite fist to hold small objects IND. to increase pts IND with ADLs and IADLs by d/c Goal:: Pt. to verbalize understanding of wear schedule of custom orthotic and verbalize that she is consistent with wear schedule within 1 week. Plan: initiate PRE continue with work simulation. putty and get impregnator and drier helper strength Discharge Comments: pt was seen for 5 OT sessions- pt demo sig. improvement with use of her hand only reporting difficulty about 10% of the time- reporting 90% improvment since eval. pt demo full composite fist- and good strength - advised pt to cont with use of hand and keep pain no greater than 3-5/10 with use - pt demo understanding and agree to POC of HEP free wts for UB shoulder/biceps etc. advised pt if she is worried returning to 8 hour days she could see if HR would allow 4-6- 8 hour gradual return- pt receptive and would think about it. If there are questions or concerns regarding this patient's occupational therapy, please fell free to call me at [phone]. Thank you for the referral of this patient. Sincerely, Janessa Santana, OTR/L, CHT
== END 2021-12-02 09:50 | disposition home or self-care (01) ==
LOC: OT 09:00
PROVIDERS: PCP Family Medicine; Referring Provider Physician Assistant; Visit Provider Physician Assistant
DX: S62.336D Displaced fracture of neck of fifth metacarpal bone, right hand, subsequent encounter for fracture with routine healing (principal); X58.XXXD Exposure to other specified factors, subsequent encounter
CPT/HCPCS: 97110; 97140; 97165; 97166; 97530; 97760

== ENCOUNTER → 2022-05-23 | Outpatient (CLI) | payer BC, SELFPAY ==
[2022-05-23 17:18] LABS: Free T3 2.5 pg/mL (2.18-3.98); T4 Free Direct 0.78 ng/dL (0.76-1.46); Thyroid Stim Hormone (TSH) 1.08 uIU/mL (0.358-3.74)
== END | disposition home or self-care (01) ==
LOC: LAB 15:50
PROVIDERS: PCP Family Medicine; Referring Provider Family Medicine; Visit Provider Family Medicine
DX: E03.9 Hypothyroidism, unspecified (principal)
CPT/HCPCS: 36415; 84439; 84443; 84481

== ENCOUNTER 2023-05-10 14:57 | Outpatient (RCR) | payer BC, SELFPAY ==
--- NOTE | 2023-05-10 15:53 | HP.OTEVAL ---
Patient's Visit Information Visit Information Visit Information: ADY CRYSTAL is a 63 year old F, referred to Occupational Therapy by Dr. Jessica Dinh MD, with a diagnosis of left lateral epi. Date of Evaluation: 05/10/23 Occupational Therapist: Janessa Santana, BALJINDER/Radha, CHT Subjective Subjective: This 63 year old female was seen for OT eval with dx of left lateral epicondylitis. pt has been struggling with symptoms for over two year. pt states pain increased to where she could not sleep. Pt states she was given cortisone shot to left elbow about a week ago. pt states she has full relief pt states she did get covid and had 6-7 days off of work shortly after her cortisone injection. 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 Pain left elbow pain: Current Pain Intensity: 1 Pain Intensity Range: 0 and 1 ROM Elbow: right +5/145 left -20/145 Forearm: right/left WNL Wrist: right/left WNL Strength Foundation Relations Manager: right 40# left 32# Lateral Pinch: right 12# left 12# Tripod Pinch: right 12#left 10# Strength Comments: e marketing specialist strength with elbow straight right 35#left 20# Sensation Sensation Comments: denies Special Tests Lat Epiconylitis - as named: left positive Quick DASH-Disab of Arm,Shoulder& Hand Quick DASH Score: 33.3325 Goals Goal:100% adherence to protocol: Yes Comment: lateral eip conservative guidelines Goal:ROM equal to unaffected hand: Yes Goal:Foundation Relations Manager/Pinch strength at least 75% of unaffected hand: Yes Goal:No pain with affected hand use: Yes Rehabilitation General Assessment: pt demo with with lingering lateral eip symptoms, weakness that limit pts ind. with ADLs and IADLs. pt would benefit from skilled OT services 1-2x week for 3-4 weeks to ed, pt on latera eip precautions to protect tendon, bracing and eccentric ex. along with isometric shoulder strengthening as tolerated/. pt demo understanding and agree to POC. Rehabilitation Potential: Good Anticipated Interventions Anticipated Interventions: A/AAROM/PROM, Strengthening, Orthoses, Joint Protection/Energy Conservation, Ergonomic Education, Education re assistive Equipment, Education re Diagnosis and Home Program Visit Plan Frequency: 1-2x /Week Duration: 2-4 Weeks TEXT: Thank you for the opportunity to evaluate your patient. For Medicare and Medicare HMO plans, please review the plan of care and approve it. It will need to be FAXED BACK to us at [phone] for Medicare purposes. Please let me know if there are questions or concerns regarding this plan of care. Physician Signature: Date:
--- NOTE | 2023-09-13 14:02 | HP.OT.NRP ---
Patient Information Patient Information: ADY CRYSTAL was seen in my office for initial evaluation on 05/10/23. The following Plan of Care was established for this patient: POC Established Initial Frequency: 1-2x /Week Initial Duration: 2-4 Weeks Anticipated Interventions Anticipated Interventions: A/AAROM/PROM, Strengthening, Orthoses, Joint Protection/Energy Conservation, Ergonomic Education, Education re assistive Equipment, Education re Diagnosis and Home Program Last Seen Last Seen: This patient was last seen in our office 05/10/23. Pertinent comments regarding their Occupational therapy will appear below: pt was seen for eval only. no further apts were scheduled and due to time lapse in services pt is d/c. At this point I will be discontinuing this patient from occupational therapy. I would be happy to see this patient again in the future if found appropriate by the physician. Thank you! Janessa Santana, OTR/L, CHT
== END 2023-05-10 19:00 | disposition home or self-care (01) ==
LOC: OT 14:57
PROVIDERS: PCP Family Medicine; Referring Provider Family Medicine; Visit Provider Family Medicine
DX: M77.12 Lateral epicondylitis, left elbow (principal)
CPT/HCPCS: 97110; 97166

== ENCOUNTER → 2023-08-09 | Outpatient (CLI) | payer BC, SELFPAY ==
[2023-08-09 12:42] LABS: Erythrocyte Sedimentation Rate 23 mm/hr (0-30)
[2023-08-09 13:32] LABS: CRP 3.33 mg/L (0.0-3.0); Rheumatoid Factor < 10.0 IU/mL (<15)
[2023-08-10 12:09] LABS: ANTINUCLEAR ANTIBODIES DIRECT Negative (Negative); CCP IgG Antibodies 2 units (0-19)
== END | disposition home or self-care (01) ==
LOC: BFHLAB 08:51
PROVIDERS: PCP Family Medicine; Visit Provider Family Medicine
DX: M25.50 Pain in unspecified joint (principal); M79.10 Myalgia, unspecified site
CPT/HCPCS: 36415; 85652; 86038; 86140; 86200; 86225; 86235; 86431

== ENCOUNTER 2023-09-04 15:50 | Outpatient (CLI) | payer BC, SELFPAY ==
[2023-09-07 15:08] LABS: Lyme IgG P18 Ab Absent (.); Lyme IgG P23 Ab Absent (.); Lyme IgG P28 Ab Absent (.); Lyme IgG P30 Ab Absent (.); Lyme IgG P39 Ab Absent (.); Lyme IgG P41 Ab Absent (.); Lyme IgG P45 Ab Absent (.); Lyme IgG P58 Ab Absent (.); Lyme IgG P66 Ab Absent (.); Lyme IgG P93 Ab Absent (.); Lyme IgG WB Interpretation Negative (.); Lyme IgM P23 Ab Absent (.); Lyme IgM P39 Ab Absent (.); Lyme IgM P41 Ab Absent (.); Lyme IgM WB Interpretation Negative (.)
== END 2023-09-04 23:59 | disposition home or self-care (01) ==
LOC: MTLAB 15:50
PROVIDERS: PCP Family Medicine; Referring Provider Family Medicine; Visit Provider Family Medicine
DX: Z04.89 Encounter for examination and observation for other specified reasons (principal); W57.XXXA Bitten or stung by nonvenomous insect and other nonvenomous arthropods, initial encounter
CPT/HCPCS: 36415; 86617

== ENCOUNTER → 2023-09-12 | Outpatient (CLI) | payer BC, SELFPAY ==
--- NOTE | 2023-09-12 15:30 | BI_ITS ---
MAMMOGRAPHY - BILATERAL SCREENING REASON FOR EXAM: Female, 63 years old. Routine annual screening examination. PERTINENT HISTORY: Aunts with breast cancer. TECHNIQUE: Digital bilateral breast sandee (3D mammographic acquisition) in the CC and MLO projections. 2-D mediolateral oblique (MLO) and craniocaudad (CC) views of both breasts were obtained. CAD: Full Field Digital Mammography with Computer Added Detection was performed. COMPARISON: Comparison is made with prior study October 26, 2021 and October 20, 2020. FINDINGS: Breast Composition: There are scattered areas of fibroglandular density. There are no dominant masses or suspicious calcifications. Fat-containing bilateral axillary lymph nodes. No other significant abnormalities are identified. There has been no significant change since the prior study. BI/SCRN MAMM (CAD)W/SANDEE BILAT IMPRESSION: Stable bilateral screening mammogram. Yearly follow-up mammogram recommended. (A) ASSESSMENT CATEGORY: BIRADS Category 2: Benign. A letter regarding these results will be sent to the patient by the facility within 30 days. Approximately 10% of breast cancers are not detected by mammography. A normal mammogram should not delay biopsy of a clinically suspicious abnormality. [id number] Electronically Signed: Rene Shah MD at 9:06 EDT ,
== END | disposition home or self-care (01) ==
LOC: OPBI 15:28
PROVIDERS: PCP Family Medicine; Referring Provider Family Medicine; Visit Provider Family Medicine
DX: Z12.31 Encounter for screening mammogram for malignant neoplasm of breast (principal); Z80.3 Family history of malignant neoplasm of breast
CPT/HCPCS: 77063; 77067

== ENCOUNTER 2023-12-22 11:18 | Emergency (ER) | payer BC, SELFPAY ==
[2023-12-22 11:19] VITALS: BP 132/82; PULSE 69; RESP 16; TEMP 36.3; O2SAT 99; BMI 31.7
--- NOTE | 2023-12-22 11:37 | RAD_ITS ---
STUDY: X-RAY CHEST REASON FOR EXAM: Female, 63 years old. Chest pain. Palpitations. TECHNIQUE: PA and lateral views of the chest. COMPARISON: Comparison is made with prior study dated January 31, 2005. FINDINGS: EKG electrodes are seen. Hyperinflation. There is no demonstrated pleural abnormality. Calcified hilar lymph nodes. Normal mediastinum and ebony. Normal visualized pulmonary arteries. Normal visualized aortic arch and descending thoracic aorta. Normal visualized thoracic spine. Normal visualized ribs, clavicles, and shoulders. There is no demonstrated abnormality of the visualized soft tissue structures of the upper abdomen. RAD/Chest PA and Lateral IMPRESSION: Hyperinflation. The lungs are clear. Electronically Signed: Rene Shah MD at 12:21 EDT ,
--- NOTE | 2023-12-22 11:37 | EKG12_ITS ---
Test Reason : palpitations Blood Pressure : / mmHG Vent. Rate : 064 BPM Atrial Rate : 064 BPM P-R Int : 146 ms QRS Dur : 078 ms QT Int : 418 ms P-R-T Axes : 060 039 046 degrees QTc Int : 431 ms Normal sinus rhythm Normal ECG Confirmed by FUNMI MOISE, SHAUN ([id number]), editorial intern JACQUELIN NICHOLAS ([id number]) on 12/25/2023 11:14:23 AM Referred By: Confirmed By:SAHUN CHOUDHARY MD
--- NOTE | 2023-12-22 11:39 | EX.ED.DYSGE1 ---
HPI History of Present Illness Chief Complaint: Palpitations Informant: patient Narrative Narrative: Patient is a 63 tear old female with history of hypothyroid (labs 1 month ago, no recent med change) and depression presenting with palpitations. She notes for the past 2 days she has been having worsening episodes of palpitations accompanied by feeling cold, chest pressure and dizziness. She states they last 1-2 minutes. She also states that she feels foggy/ not quite right. She notes that she has been dealing with alot of stress lately as her just from cancer. She reports a similar episode years ago which was attributed to stress/anxiety. She states that she is traveling out of town tomorrow to [place]. Currently denies any chest pain or symptoms. Denies and cardiac history. Denies any associated nausea, sweating, SOB, melena or other symptoms. [facility] Medical History Environmental allergies Depression Hemorrhoids Hypothyroidism Home Medications ?Medication ?Instructions ?Recorded ?Last Taken ?Type ascorbic acid (vitamin C) 1,000 mg 1,000 mg PO DAILY 11/27/18 Unknown History tablet cholecalciferol (vitamin D3) 125 1,000 unit PO DAILY 11/27/18 Unknown History mcg (5,000 unit) capsule cyanocobalamin (vitamin B-12) 1,000 mcg PO DAILY 11/22/19 Unknown History 1,000 mcg capsule ibuprofen 400 mg tablet 400 mg PO Q8H 10/14/21 Unknown History fluoxetine 20 mg capsule 20 mg PO QDAY 10/13/23 Unknown History liothyronine 5 mcg tablet 5 mcg PO QDAY 10/13/23 Unknown History Allergy/AdvReac Type Severity Reaction Status Date / Time No Known Allergies Allergy Verified 12/22/23 11:19 Social History Smoking Status: Never smoker alcohol intake: never substance use type: does not use ROS ROS ED Constitutional Constitutional ED: Denies chills, fever(s) or sweats Eyes Eyes: Denies blurry vision ENT ENT ED: Denies sore throat Cardiovascular Cardiovascular: Reports chest pain and palpitations Respiratory/Chest Respiratory/Chest: Denies cough or dyspnea Gastrointestinal Gastrointestinal: Denies abdominal pain, melena, nausea or vomiting Genitourinary Genitourinary ED: Denies dysuria, hematuria or urinary frequency Musculoskeletal Musculoskeletal: Denies arthralgias or myalgias Integumentary Denies rash Neurologic Neurologic: Denies headache(s) Psychiatric Psychiatric: Reports anxiety Hematologic/Lymphatic Hematologic/Lymphatic: Denies easy bleeding or easy bruising EXAM Physical Exam Const Vital Signs: 12/22/23 11:19 12/22/23 11:46 12/22/23 13:18 Temperature 97.3 F L Temperature Source Temporal Pulse Rate 69 77 Respiratory Rate 16 16 Blood Pressure 132/82 H 128/84 H Blood Pressure Mean 98 98 Pulse Ox 99 Oxygen Delivery Method Room Air Room Air 12/22/23 15:00 Temperature Temperature Source Pulse Rate 61 Respiratory Rate 20 H Blood Pressure 126/78 H Blood Pressure Mean 94 Pulse Ox Oxygen Delivery Method Positive well nourished and well developed General Appearance ED: well developed and NAD HEENT Reports moist mucous membranes Eyes PERRL General Eye ED: Negative for pale conjunctiva Neck supple and no JVD Chest Wall inspection of chest normal and palpation of chest normal Resp normal respiratory effort and clear to auscultation bilaterally Cardio regular rate, regular rhythm and no murmurs GI normal to inspection, nondistended, normoactive bowel sounds and non-tender Extremity normal to inspection General Extremety ED: Negative for edema General Extremity: Negative for edema Neuro oriented x3 Sensorium / Orientation: alert Motor Exam: Negative for general weakness Psych mental status grossly normal Skin no rashes or lesions noted MDM MDM MDM Narrative Medical decision making narrative: Patient presents with palpations. She is asymptomatic at this time. Cardiac work up performed including delta HS trop and ECG. This is normal. No significant electrolyte abnormalities. No signs of anemia or infection. No UTI. CXR no acute process. Will DC home with outpatient cards follow up. Discussed outpatient event monitor as needed. She is agreeable with this plan of care. Lab Data Attestation: I reviewed the patient's lab results. Labs: Laboratory Results - last 24 hr 12/22/23 12/22/23 12/22/23 11:30 12:22 13:52 WBC 7.2 RBC 4.43 Hgb 14.0 Hct 42.0 MCV 94.8 MCH 31.6 MCHC 33.3 RDW Std Deviation 42.2 RDW Coeff of Liyah 12.1 Plt Count 271 MPV 10.1 Immature Gran % (Auto) 0.100 Neut % (Auto) 62.0 Lymph % (Auto) 25.7 Arroyo % (Auto) 9.3 Eos % (Auto) 1.9 Baso % (Auto) 1.0 Absolute Neuts (auto) 4.5 Absolute Lymphs (auto) 1.85 Nucleated RBC % 0 Sodium 137 Potassium 3.7 Chloride 102 Carbon Dioxide 24.0 Anion Gap 11 BUN 18 Creatinine 0.94 Estim Creat Clear Calc 57.19 Est GFR (MDRD) Af Amer 77 Est GFR (MDRD) Non-Af 64 BUN/Creatinine Ratio 19.1 Glucose 98 Calcium 9.4 Magnesium 2.1 Troponin I High Sens 4 4 Urine Color Yellow Urine Clarity Clear Urine pH 6.0 Ur Specific [place] 1.010 Urine Protein Negative Urine Glucose (UA) Normal Urine Ketones 5 H Urine Occult Blood 10 H Urine Nitrite Negative Urine Bilirubin Negative Urine Urobilinogen Normal Ur Leukocyte Esterase Negative Urine RBC 0 SEEN Urine WBC 0 SEEN Ur Squamous Epith Cells 0 SEEN Urine Bacteria 0 SEEN Urine Mucus 0 SEEN Radiography Chest X-Ray - ED: 2 View, Read by ED Physician, Read by Radiologist and No Acute Disease Diagnostic Testing: Clinical Impression(s) from Imaging Studies Chest X-Ray 12/22/23 11:37 IMPRESSION: Hyperinflation. The lungs are clear. Electronically Signed: Rene Shah MD at 12:21 EDT , Rhythm Strip Rhythm Strip: Sinus Rhythm Rate: 64 Ectopy: None EKG Initial EKG: Attestation: I personally reviewed and interpreted this EKG as follows: Interpretation: Sinus Rhythm Comments: Normal intervals and ST segments Differential Diagnosis Chest pain/SOB: ACS ACS: Positive for no evidence of ACS based on cardiac biomarkers, EKG without ischemia and history not suggestive of ischemia pain, pneumonia Reason(s) pneumonia less likely: Positive for no infiltrate on CXR, no elevation in WBC count, no noted fever and symptoms not consistent with acute infection and CHF Reason(s) CHF less likely: Positive for no significant peripheral edema, no orthopnea and no evidence of fluid overload on CXR Discharge Plan Triage Chief Complaint: Palpitations ED Provider: Karoline Marr Dx/Rx/DC Orders Clinical Impression: Heart palpitations Instructions: ED Palpitations Prescriptions: No Action ibuprofen 400 mg tablet 400 mg PO Q8H liothyronine 5 mcg tablet 5 mcg PO QDAY fluoxetine 20 mg capsule 20 mg PO QDAY ascorbic acid (vitamin C) 1,000 MG tablet 1,000 mg PO DAILY cholecalciferol (vitamin D3) 5,000 UNIT capsule 1,000 unit PO DAILY cyanocobalamin (vitamin B-12) 1,000 MCG capsule 1,000 mcg PO DAILY Primary Care Provider: Shanna Perez Referrals: Diana Aragon MD [Med Staff - Active Staff] - 1-2 Weeks Shanna Perez DO [Primary Care Provider] - Print Language: Angolan Disposition Disposition: Home, Self Care
[2023-12-22 11:48] LABS: Absolute Lymphocyte Count 1.85 X10^3/uL (0.83-4.51); Absolute Neutrophil Count 4.5 X10^3/uL (2.0-7.7); Basophil# 0.07 X10^3/uL; Eosinophil# 0.14 X10^3/uL; Eosinophils% 1.9 % (0-5); Lymphocyte # 1.85 X10^3/ul (0.83-4.51); Lymphocyte % 25.7 % (19-41); Mean Corp Hgb Conc 33.3 g/dL (32-36); Mean Corpuscular Hgb 31.6 pg (27.0-32.0); Mean Corpuscular Volume 94.8 fL (81-99); Mean Platelet Vol. 10.1 fl (6.2-12.0); Monocyte# 0.67 X10^3/uL; Monocyte% 9.3 % (0-10); NRBC Flagged by Analyzer 0 % (0-5); Neutrophil # 4.47 X10^3/uL (2.7-7.7); Platelet Count 271 K/mm3 (150-450); RBC Distribution Width CV 12.1 % (11.6-14.6); RBC Distribution Width SD 42.2 fl (35.1-43.9); Red Blood Count 4.43 M/mm3 (4.2-5.4); White Blood Count 7.2 K/mm3 (4.4-11.0)
[2023-12-22 12:06] LABS: Anion Gap 11 (5-15); BUN 18 mg/dL (7-18); BUN/Creat Ratio 19.1 RATIO (10-20); Calcium,Total 9.4 mg/dL (8.5-10.1); Chloride 102 mmol/L (98-107); Creatinine, Serum 0.94 mg/dL (0.55-1.02); EST Glomerular Filtration Rate 64 mL/min (>60); Est Glom Filt Rate - Afr Amer 77 mL/min (>60); Estimated Creatinine Clearance 57.19 ml/min; Glucose 98 mg/dL (74-106); Magnesium 2.1 mg/dL (1.6-2.6); Potassium 3.7 mmol/L (3.5-5.1); Sodium Level 137 mmol/L (136-145); Troponin-I HS (w/2H Reflex) 4 pg/mL (3.0-54.0)
[2023-12-22 12:26] LABS: Bacteria 0 SEEN /hpf (None Seen); Mucous, Urine 0 SEEN /hpf (<or=2+); Red Blood Cells-Urine 0 SEEN /hpf (0-5); Squamous Epithelial Cells - UA 0 SEEN /hpf (5-10); White Blood Cells 0 SEEN /hpf (0-5)
[2023-12-22 12:28] LABS: Color, Urine Yellow (Yellow); Glucose, Dipstick Normal (Normal); Ketone-Dipstick 5 mg/dl (Negative); Leukocyte Esterase-Dipstick Negative /ul (Negative); Nitrite-Dipstick Negative (Negative); Occult Blood-Urine 10 /ul (Negative); Protein-Dipstick Negative (Negative); Urine Bilirubin Dipstick Negative (Negative); Urine Clarity Clear (Clear); Urine Urobilinogen Normal (Normal)
[2023-12-22 13:18] VITALS: BP 128/84; PULSE 77; RESP 16
[2023-12-22 13:44] LABS: Reflex Troponin-HS? (from REC) Y
[2023-12-22 14:15] LABS: Troponin-I HS 4 pg/mL (3.0-54.0)
[2023-12-22 15:00] VITALS: BP 126/78; PULSE 61; RESP 20
[2023-12-22 15:11] VITALS: BP 126/78; PULSE 61; RESP 20; TEMP 36.3; O2SAT 99
== END 2023-12-22 15:18 | disposition home or self-care (01) ==
PROVIDERS: Emergency Provider Emergency Medicine; PCP Family Medicine; Visit Provider Emergency Medicine
DX: R00.2 Palpitations (principal); F41.9 Anxiety disorder, unspecified; E03.9 Hypothyroidism, unspecified; F32.A Depression, unspecified
CPT/HCPCS: 71046; 80048; 81001; 83735; 84484; 85025; 93005; 99284; A4216

== ENCOUNTER → 2024-01-01 | Outpatient (CLI) | payer BC, SELFPAY ==
--- NOTE | 2024-01-01 10:41 | RAD_ITS ---
STUDY: X-RAY - LEFT ANKLE REASON FOR EXAM: Female, 63 years old. Pain following injury. TECHNIQUE: 3 view(s) of the ankle. COMPARISON: None. FINDINGS: Normal visualized distal tibia and fibula. Normal medial and lateral malleoli. Normal tibiotalar articulation and ankle mortise. Small plantar spur. The visualized subtalar, talonavicular, calcaneocuboid and tarsal articulations are normal. Soft tissue swelling. RAD/Ankle min 3 Views IMPRESSION: Soft tissue swelling. No fracture is seen. Electronically Signed: Rene Shah MD at 11:15 EDT ,
== END | disposition home or self-care (01) ==
LOC: MTRAD 10:41
PROVIDERS: PCP Family Medicine; Referring Provider Physician Assistant; Visit Provider Physician Assistant
DX: S93.409A Sprain of unspecified ligament of unspecified ankle, initial encounter (principal); S96.919A Strain of unspecified muscle and tendon at ankle and foot level, unspecified foot, initial encounter; X58.XXXA Exposure to other specified factors, initial encounter
CPT/HCPCS: 73610

== ENCOUNTER → 2024-06-22 | Outpatient (CLI) | payer BC, SELFPAY ==
[2024-06-22 07:32] LABS: Absolute Lymphocyte Count 1.29 X10^3/uL (0.83-4.51); Absolute Neutrophil Count 2.6 X10^3/uL (2.0-7.7); Basophil# 0.08 X10^3/uL; Basophil% 1.7 % (0-1); Eosinophil# 0.23 X10^3/uL; Eosinophils% 4.9 % (0-5); Hematocrit 40.7 % (37-47); Hemoglobin 13.8 g/dL (12.0-15.0); Lymphocyte # 1.29 X10^3/ul (0.83-4.51); Lymphocyte % 27.5 % (19-41); Mean Corp Hgb Conc 33.9 g/dL (32-36); Mean Corpuscular Hgb 32.2 pg (27.0-32.0); Mean Corpuscular Volume 94.9 fL (81-99); Mean Platelet Vol. 9.5 fl (6.2-12.0); Monocyte# 0.48 X10^3/uL; Monocyte% 10.2 % (0-10); NRBC Flagged by Analyzer 0 % (0-5); Neutrophil % 55.5 % (47-70); Platelet Count 284 K/mm3 (150-450); RBC Distribution Width CV 12.7 % (11.6-14.6); RBC Distribution Width SD 43.8 fl (35.1-43.9); Red Blood Count 4.29 M/mm3 (4.2-5.4); White Blood Count 4.7 K/mm3 (4.4-11.0)
[2024-06-22 08:19] LABS: Hemoglobin A1c 5.2 % (3.8-5.6)
[2024-06-22 08:22] LABS: AST(SGOT) 18 U/L (15-37); Alanine Aminotransfer ALT/SGPT 24 U/L (13-56); Albumin, Serum 3.6 g/dL (3.2-5.0); Alkaline Phosphatase 110 U/L (45-117); Anion Gap 3 (5-15); BUN 16 mg/dL (7-18); BUN/Creat Ratio 17.1 RATIO (10-20); Calcium,Total 9.2 mg/dL (8.5-10.1); Chloride 109 mmol/L (98-107); Cholesterol 198 mg/dL (200); Creatinine, Serum 0.94 mg/dL (0.55-1.02); EST Glomerular Filtration Rate 64 mL/min (>60); Est Glom Filt Rate - Afr Amer 77 mL/min (>60); Free T3 2.7 pg/mL (2.18-3.98); Globulin 3.6 g/dL (2.2-4.2); Glucose 100 mg/dL (74-106); High Density Lipoprotein 79 mg/dL; Potassium 4.2 mmol/L (3.5-5.1); Protein, Total 7.2 g/dL (6.4-8.2); Sodium Level 138 mmol/L (136-145); T4 Free Direct 0.83 ng/dL (0.76-1.46); Thyroid Stim Hormone (TSH) 0.924 uIU/mL (0.358-3.740); Triglycerides 65 mg/dL; Very Low Density Lipoprotein 13 mg/dL (5-40)
== END | disposition home or self-care (01) ==
LOC: LAB 07:16
PROVIDERS: PCP Family Medicine; Referring Provider Family Medicine; Visit Provider Family Medicine
DX: E03.9 Hypothyroidism, unspecified (principal); E11.9 Type 2 diabetes mellitus without complications; I10 Essential (primary) hypertension; Z51.81 Encounter for therapeutic drug level monitoring; R73.01 Impaired fasting glucose
CPT/HCPCS: 36415; 80053; 80061; 83036; 84439; 84443; 84481; 85025

== ENCOUNTER → 2024-10-04 | Outpatient (CLI) | payer BC, SELFPAY ==
--- NOTE | 2024-10-04 11:46 | BI_ITS ---
EXAM: SCRN MAMM (CAD)W/SANDEE BILAT DATE: 10/04/2024 CLINICAL HISTORY: F, Age 64 y/o , SCREENING BREAST CANCER RISK ASSESSMENT: Has not been calculated TECHNIQUE: Bilateral screening digital breast tomosynthesis with 2D and 3D images. Computer aided detection. COMPARISON: Prior exam(s) dated 09/12/2023 and 10/26/2021. FINDINGS: TISSUE DENSITY: The breast tissue is almost entirely fatty. Bilateral Breast Mammographic Findings: No significant masses, calcifications or other abnormalities are identified. Benign round microcalcifications are seen in both breasts. BI/SCRN MAMM (CAD)W/SANDEE BILAT IMPRESSION: OVERALL FINAL ASSESSMENT: BIRADS 1 NEGATIVE RECOMMENDATION: Routine annual follow-up in 1 Year A letter with findings and recommendations will be mailed to the patient. Reading Location: [id number]
== END | disposition home or self-care (01) ==
LOC: OPBI 11:44
PROVIDERS: PCP Family Medicine; Referring Provider Family Medicine; Visit Provider Family Medicine
DX: Z12.31 Encounter for screening mammogram for malignant neoplasm of breast (principal)
CPT/HCPCS: 77063; 77067